=== PATIENT | male | born 1960 ===

== ENCOUNTER 2020-10-13 13:44 | Inpatient (IN) | payer OTHER ==
[~2020-10-13] VITALS: Ht 185.4 cm; Wt 111.5 kg
--- NOTE | 2020-10-13 14:11 | NUR ---
PT PLACED ON ALL ROOM MONITORING. ATTEMPT TO PLACE OXYMASK AT 8LITERS. PT CONTINUES TO BY HYPOXIC, 84%. NRB PLACED AT 15LITERS WITH SATS IMPROVING TO 89%. TACHY ON MONITOR, RANGING 110-134. OFFICERS AT BS.
[2020-10-13] MEDS ORDERED: AZITHROMYCIN 500 MG in SODIUM CHLORIDE 0.9% 250 ML IVPB ONE (14:30)
[2020-10-13] MEDS ORDERED: CEFTRIAXONE PMX 1GM/50ML 50 ML IVPB ONE (14:30)
[2020-10-13] MEDS ORDERED: SODIUM CHLORIDE FLUSH 10ML SYR IVF ONE (14:30)
--- NOTE | 2020-10-13 14:42 | NUR ---
IV PLACED BY MEDIC STUDENT, AND LABS DRAWN WITH START. REPORT TO Shun CHRISTIAN.
[2020-10-13] MEDS ORDERED: CEFTRIAXONE PMX 1GM/50ML 50 ML ONE (15:07)
--- NOTE | 2020-10-13 15:12 | NUR ---
BLOOD CULTURES DRAWN PRIOR ABX
[2020-10-13 15:29] LABS: MEAN CORPUSCULAR HEMOGLOBIN 29.7 pg (27.5-34.5); MEAN CORPUSCULAR HGB CONC 35.4 g/dL (33.2-36.2); MEAN PLATELET VOLUME 8.7 fL (7.4-10.4); PLATELET COUNT 365 x10^3/uL (130-400); RED BLOOD COUNT 5.63 x10^6/uL (4.38-5.82); RED CELL DISTRIBUTION WIDTH 13.5 % (9.4-14.8)
[2020-10-13 15:31] LABS: PLATELET (DIC) 349 x10^3/uL (130-400)
[2020-10-13 15:42] LABS: ALBUMIN 2.4 g/dL (3.4-5.0); CALCIUM 8.9 mg/dL (8.5-10.1); CHLORIDE 90 mmol/L (98-107)
[2020-10-13 15:47] LABS: MD YES
[2020-10-13 15:49] LABS: ANION GAP 14 mmol/L (5-15)
[2020-10-13 15:50] LABS: ALANINE AMINOTRANSFERASE 73 U/L (12-78); ALKALINE PHOSPHATASE 99 U/L (45-117); BILIRUBIN,TOTAL 0.7 mg/dL (0.2-1.0); CREATININE 0.98 mg/dL (0.7-1.3); TOTAL PROTEIN 7.4 g/dL (6.4-8.2)
[2020-10-13 16:12] LABS: BANDS%(MANUAL) 2 % (0-7); LYMPHS% (MANUAL) 3 % (22-44); MONOS% (MANUAL) 4 % (2-9); SEGS% (MANUAL) 91 % (42-75)
[2020-10-13 16:13] LABS: FIBRINOGEN 487 mg/dL (200-340); PROTIME 12.3 Seconds (9.6-11.5); PTT 27 Seconds (25-31)
[2020-10-13 16:13] LABS: <PLATELET ESTIMATE> ADEQUATE; <PLT MORPHOLOGY> NORMAL PLT MORPH; <RBC MORPHOLOGY> NORMAL; PMNS WITH VACUOLES 1+; TOXIC GRAN 1+
[2020-10-13 16:15] LABS: D-DIMER (DIC) > 35.20 ug/mlFEU (0.00-0.52)
[2020-10-13] MEDS ORDERED: DILTIAZEM 5 MG/ML, 5ML IV ONE (16:30)
[2020-10-13] MEDS ORDERED: SODIUM CHLORIDE FLUSH 10ML SYR IVF PRN (16:30)
[2020-10-13] MEDS ORDERED: DILTIAZEM 5 MG/ML, 5ML ONE ×2 (16:33→18:11)
--- NOTE | 2020-10-13 16:39 | NUR ---
ORDERED DILT FROM PHARM, NOT AVAILABLE IN [facility]MN[facility]. PT RESTING, NOT IN DISTRESS. HR 130-140
[2020-10-13] MEDS: DILTIAZEM 125 MG in SODIUM CHLORIDE 0.9% 100 ML IV SCH ×3 (17:25→22:57)
[2020-10-13] MEDS ORDERED: PHARMACY MAY ADJ FOR RENAL FX MC PRN (17:30)
[2020-10-13] MEDS ORDERED: DEXAMETHASONE 1 MG TABLET PO SCH (17:30)
[2020-10-13] MEDS ORDERED: GUAIFENESIN/COD200MG-20MG/10ML LIQUID PO PRN (17:30)
[2020-10-13] MEDS: SODIUM CHLORIDE 0.9% 1,000 ML IV SCH (17:30)
[2020-10-13] MEDS ORDERED: LABETALOL 5MG/ML, 20ML IVPush PRN (17:30)
[2020-10-13] MEDS ORDERED: DOCUSATE 100 MG CAPSULE PO PRN (17:30)
[2020-10-13] MEDS ORDERED: SODIUM CHLORIDE 0.9% 1,000ML IVBOLUS ONE (17:30)
[2020-10-13] MEDS ORDERED: ZOLPIDEM 5MG TABLET PO PRN (17:30)
[2020-10-13] MEDS ORDERED: ONDANSETRON 2MG/ML, 2ML IVPush PRN (17:30)
[2020-10-13] MEDS ORDERED: morphine SULFATE 10 MG/ML, 1ML IVPush PRN (17:30)
[2020-10-13] MEDS ORDERED: DILTIAZEM 5 MG/ML, 5ML IVPush PRN (17:30)
[2020-10-13] MEDS ORDERED: CYCLOBENZAPRINE 10 MG TABLET PO PRN (17:30)
[2020-10-13] MEDS ORDERED: ENOXAPARIN 40 MG/0.4 ML SQ SCH (17:30)
--- NOTE | 2020-10-13 17:32 | NUR ---
DILT INFUSING PER ORDERS. PT HAS NO CO, NOT IN RESP DISTRESS.
[2020-10-13 18:09] LABS: TROPONIN I < 0.015 ng/mL (0.000-0.045)
[2020-10-13] MEDS ORDERED: ENOXAPARIN 40 MG/0.4 ML ONE (18:10)
[2020-10-13] MEDS ORDERED: DEXAMETHASONE 4 MG TABLET ONE (18:11)
[2020-10-13] MEDS ORDERED: METOPROLOL TARTRATE 25 MG TAB ONE (18:11)
[2020-10-13] MEDS: METOPROLOL TARTRATE 25 MG TAB PO SCH (18:15)
--- NOTE | 2020-10-13 18:25 | NUR ---
MEDICATED PER ORDERS. MEAL TRAY ORDERED. PT MAINTAINING AIRWAY, RR 35
--- NOTE | 2020-10-13 18:52 | NUR ---
BEDSIDE REPORT RECEIVED FROM JUNG CHRISTIAN
--- NOTE | 2020-10-13 19:14 | NUR ---
PT SITTING UPRIGHT ON GURNEY, NAD, VITALS REMAIN STABLE. [facility] STAFF AT BEDSIDE. PT DENIES ANY NEEDS AT THIS TIME. CALL LIGHT WITHIN REACH, ISOLATION PRECAUTIONS IN PLACE.
--- NOTE | 2020-10-13 20:08 | NUR ---
PT SITTING UPRIGHT ON GURNEY, NAD, VITALS REMAIN STABLE. [facility] STAFF AT BEDSIDE. PT DENIES ANY NEEDS AT THIS TIME. CALL LIGHT WITHIN REACH, ISOLATION PRECAUTIONS IN PLACE.
[2020-10-13] MEDS ORDERED: BENZONATATE 100 MG CAPSULE ONE (20:48)
[2020-10-13] MEDS ORDERED: ASCORBIC ACID 500 MG TABLET ONE (20:48)
[2020-10-13] MEDS ORDERED: FAMOTIDINE 20 MG TABLET ONE (20:48)
[2020-10-13] MEDS: FAMOTIDINE 20 MG TABLET PO SCH (20:55)
[2020-10-13] MEDS: ASCORBIC ACID 500 MG TABLET PO SCH (20:56)
[2020-10-13] MEDS: BENZONATATE 100 MG CAPSULE PO SCH (20:56)
--- NOTE | 2020-10-13 21:00 | NUR ---
Pt to be admitted to CARD/COVID, room 493. Report called to CINDY.
--- NOTE | 2020-10-13 21:34 | NUR ---
[facility] AT BEDSIDE
--- NOTE | 2020-10-13 22:03 | NUR ---
PT CONTINUES TO TOLERATE OPTIFLOW WELL. PT SITTING UPRIGHT ON GURNEY, NAD, VITALS REMAIN STABLE. [facility]F-WAY STAFF AT BEDSIDE. PT DENIES ANY NEEDS AT THIS TIME. CALL LIGHT WITHIN REACH, ISOLATION PRECAUTIONS IN PLACE.
[2020-10-13] MEDS: LOVASTATIN 20 MG TABLET PO SCH (22:22)
--- NOTE | 2020-10-13 22:39 | NUR ---
Pt to be admitted to CCU, room 545. Report called to HUSSEIN.
[2020-10-13 23:16] VITALS: BP 175/76
[2020-10-13] MEDS ORDERED: REMDESIVIR 200 MG in SODIUM CHLORIDE 0.9% 250 ML IVPB ONE (23:30)
[2020-10-13 23:43] LABS: INTERNATIONAL NORMALIZED RATIO 1.15 (0.93-1.1); PROTHROMBIN TIME 12.2 Seconds (9.6-11.5)
[2020-10-13 23:48] LABS: TROPONIN I < 0.015 ng/mL (0.000-0.045)
[2020-10-14 03:14] LABS: MEAN CORPUSCULAR HEMOGLOBIN 29.5 pg (27.5-34.5); MEAN CORPUSCULAR HGB CONC 34.7 g/dL (33.2-36.2); MEAN PLATELET VOLUME 8.1 fL (7.4-10.4); PLATELET COUNT 315 x10^3/uL (130-400); RED BLOOD COUNT 5.31 x10^6/uL (4.38-5.82); RED CELL DISTRIBUTION WIDTH 13.3 % (9.4-14.8)
[2020-10-14 03:25] LABS: BILIRUBIN, DIRECT 0.2 mg/dL (0.1-0.2)
[2020-10-14 03:26] LABS: ANION GAP 7 mmol/L (5-15); BILIRUBIN,INDIRECT 0.5 mg/dL (0.0-2.0); BILIRUBIN,TOTAL 0.7 mg/dL (0.2-1.0); CALCIUM 8.3 mg/dL (8.5-10.1); CHLORIDE 96 mmol/L (98-107); CREATININE 0.96 mg/dL (0.7-1.3)
[2020-10-14 03:41] LABS: TROPONIN I < 0.015 ng/mL (0.000-0.045)
[2020-10-14 04:13] LABS: MD YES
[2020-10-14 04:16] LABS: <RBC MORPHOLOGY> NORMAL; BAND#(MANUAL) 0.59 x10^3/uL; BANDS%(MANUAL) 3 % (0-7); LYMPH#(MANUAL) 0.39 x10^3/uL (1-3.4); LYMPHS% (MANUAL) 2 % (22-44); MONOS#(MANUAL) 0.39 x10^3/uL (0.3-2.7); MONOS% (MANUAL) 2 % (2-9); SEG#(MANUAL) 18.32 x10^3/uL (1.8-6.8); SEGS% (MANUAL) 93 % (42-75); TOXIC GRAN 1+
[2020-10-14 04:17] LABS: <PLATELET ESTIMATE> ADEQUATE; <PLT MORPHOLOGY> NORMAL PLT MORPH; PMNS WITH VACUOLES 1+
[2020-10-14] MEDS: METOPROLOL TARTRATE 25 MG TAB PO SCH (05:11)
[2020-10-14] MEDS: DILTIAZEM 125 MG in SODIUM CHLORIDE 0.9% 100 ML IV SCH (05:26)
[2020-10-14] MEDS ORDERED: ASPIRIN 81 MG TABLET EC PO SCH (06:00)
[2020-10-14] MEDS ORDERED: DEXAMETHASONE 4 MG TABLET PO SCH (07:30)
[2020-10-14] MEDS: TAMSULOSIN 0.4 MG CAP.ER.24H PO SCH (07:47)
[2020-10-14] MEDS: BENZONATATE 100 MG CAPSULE PO SCH (07:48)
[2020-10-14] MEDS: ASCORBIC ACID 500 MG TABLET PO SCH ×2 (07:48→20:01)
[2020-10-14] MEDS: FAMOTIDINE 20 MG TABLET PO SCH (07:48)
[2020-10-14] MEDS: SODIUM CHLORIDE 0.9% 1,000 ML IV SCH ×2 (07:50→16:32)
[2020-10-14] MEDS ORDERED: ZINC SULFATE 220 MG CAPSULE PO SCH (09:00)
[2020-10-14] MEDS ORDERED: LISINOPRIL 20 MG TABLET PO SCH (09:00)
[2020-10-14 09:12] LABS: ALANINE AMINOTRANSFERASE 58 U/L (12-78); ALBUMIN 2.1 g/dL (3.4-5.0); ANION GAP 10 mmol/L (5-15); CHLORIDE 99 mmol/L (98-107); CREATININE 0.86 mg/dL (0.7-1.3)
[2020-10-14 09:14] LABS: ALKALINE PHOSPHATASE 103 U/L (45-117); BILIRUBIN,TOTAL 0.7 mg/dL (0.2-1.0); TOTAL PROTEIN 6.9 g/dL (6.4-8.2)
[2020-10-14] MEDS ORDERED: ENOXAPARIN 120MG/0.8ML SQ SCH (11:30)
[2020-10-14] MEDS: ENOXAPARIN 120MG/0.8ML SQ SCH ×2 (11:36→23:11)
[2020-10-14] MEDS ORDERED: PROPOFOL 100 ML IV ONE ×2 (12:38→12:39)
[2020-10-14] MEDS ORDERED: FENTANYL PF 100 MCG/2ML IVPush PRN (13:30)
[2020-10-14] MEDS ORDERED: PHARMACY MAY ADJ FOR RENAL FX MC SCH (13:30)
[2020-10-14] MEDS ORDERED: LIDOCAINE-MPF 1%, 2ML ENDO PRN (13:30)
[2020-10-14] MEDS: PROPOFOL 100 ML IV PRN ×3 (13:50→21:47)
[2020-10-14] MEDS: MIDAZOLAM HCL 50 MG in SODIUM CHLORIDE 0.9% 40 ML IV PRN ×2 (14:10→21:47)
[2020-10-14] MEDS: FENTANYL PF 1,000 MCG in SODIUM CHLORIDE 0.9% 80 ML IV PRN (14:19)
[2020-10-14] MEDS ORDERED: PHENYLEPHRINE 50 MG in SODIUM CHLORIDE 0.9% 245 ML IV PRN (15:00)
[2020-10-14] MEDS ORDERED: POTASSIUM CHLORIDE 40 MEQ in SODIUM CHLORIDE 0.9% 100 ML IV ONE (15:00)
--- NOTE | 2020-10-14 15:15 | NUR ---
TF per RD recs: Vital HP w/ end goal rate @55mL/hr (on propofol); @65mL/hr (off propofol) Addendum: 10/14/20 at [address] Amended: Links added.
[2020-10-14] MEDS: NOREPINEPHRINE 8 MG in SODIUM CHLORIDE 0.9% 242 ML IV PRN ×2 (15:19→21:47)
[2020-10-14] MEDS: CEFTRIAXONE PMX 1GM/50ML 50 ML IV SCH (15:38)
[2020-10-14] MEDS ORDERED: MIDAZOLAM 1 MG/ML, 5ML ONE (16:27)
[2020-10-14] MEDS ORDERED: ETOMIDATE 20 MG/10 ML ONE (16:27)
[2020-10-14] MEDS ORDERED: PROPOFOL 10 MG/ML, 100ML IV ONE (16:27)
[2020-10-14] MEDS ORDERED: SUCCINYLCHOLINE 20 MG/ML, 10ML ONE (16:27)
[2020-10-14] MEDS ORDERED: ROCURONIUM 10MG/ML,5ML ONE (16:27)
[2020-10-14] MEDS: DOXYCYCLINE 100 MG in DEXTROSE 5% 250 ML IV SCH (16:32)
[2020-10-14] MEDS: LOVASTATIN 20 MG TABLET PO SCH (20:01)
[2020-10-14] MEDS ORDERED: SODIUM CHLORIDE 0.9%, 500ML IVBOLUS ONE (21:30)
[2020-10-14] MEDS: REMDESIVIR 100 MG in SODIUM CHLORIDE 0.9% 250 ML IVPB SCH (23:12)
[2020-10-15] MEDS: PROPOFOL 100 ML IV PRN ×7 (00:10→22:28)
[2020-10-15] MEDS: MIDAZOLAM HCL 50 MG in SODIUM CHLORIDE 0.9% 40 ML IV PRN ×3 (03:46→20:26)
[2020-10-15] MEDS: FENTANYL PF 1,000 MCG in SODIUM CHLORIDE 0.9% 80 ML IV PRN (03:46)
[2020-10-15] MEDS: SODIUM CHLORIDE 0.9% 1,000 ML IV SCH ×3 (03:46→19:38)
[2020-10-15] MEDS: DOXYCYCLINE 100 MG in DEXTROSE 5% 250 ML IV SCH ×2 (03:46→16:17)
[2020-10-15 04:31] LABS: ALANINE AMINOTRANSFERASE 38 U/L (12-78); ALBUMIN 1.9 g/dL (3.4-5.0); ANION GAP 7 mmol/L (5-15); CALCIUM 7.7 mg/dL (8.5-10.1); CHLORIDE 104 mmol/L (98-107); CREATININE 1.07 mg/dL (0.7-1.3)
[2020-10-15 04:36] LABS: MEAN CORPUSCULAR HGB CONC 34.6 g/dL (33.2-36.2); MEAN PLATELET VOLUME 8.3 fL (7.4-10.4); PLATELET COUNT 304 x10^3/uL (130-400); RED BLOOD COUNT 4.84 x10^6/uL (4.38-5.82); RED CELL DISTRIBUTION WIDTH 13.4 % (9.4-14.8)
[2020-10-15 04:38] LABS: ALKALINE PHOSPHATASE 91 U/L (45-117); BILIRUBIN,TOTAL 0.4 mg/dL (0.2-1.0)
[2020-10-15 05:11] LABS: BILIRUBIN, DIRECT 0.2 mg/dL (0.1-0.2); BILIRUBIN,INDIRECT 0.2 mg/dL (0.0-2.0); BILIRUBIN,TOTAL 0.4 mg/dL (0.2-1.0)
[2020-10-15 05:49] LABS: MD YES
[2020-10-15 05:50] LABS: BAND#(MANUAL) 1.02 x10^3/uL; BANDS%(MANUAL) 4 % (0-7); LYMPH#(MANUAL) 1.02 x10^3/uL (1-3.4); LYMPHS% (MANUAL) 4 % (22-44); METAMYELOCYTES# (MANUAL) 0.26 x10^3/uL (0-0); METAMYELOCYTES% (MANUAL) 1 % (0-1); MONOS#(MANUAL) 0.26 x10^3/uL (0.3-2.7); MONOS% (MANUAL) 1 % (2-9); SEG#(MANUAL) 23.04 x10^3/uL (1.8-6.8); SEGS% (MANUAL) 90 % (42-75)
[2020-10-15 05:51] LABS: <PLATELET ESTIMATE> ADEQUATE; <PLT MORPHOLOGY> NORMAL PLT MORPH; POLYCHROMASIA 1+
[2020-10-15] MEDS: PANTOPRAZOLE 40 MG IV IV SCH (08:32)
[2020-10-15] MEDS: ASPIRIN 81 MG TABLET CHEW PO SCH (08:33)
[2020-10-15] MEDS: TAMSULOSIN 0.4 MG CAP.ER.24H PO SCH (08:33)
[2020-10-15] MEDS: DEXAMETHASONE 4 MG/ML, 1ML IVPush SCH (08:33)
[2020-10-15] MEDS: ASCORBIC ACID 500 MG TABLET PO SCH ×2 (08:34→19:38)
[2020-10-15] MEDS ORDERED: THIAMINE 100MG TABLET PO SCH (09:00)
[2020-10-15] MEDS ORDERED: CHOLECALCIFEROL 5,000u TAB PO SCH (09:00)
[2020-10-15] MEDS ORDERED: ZINC SULFATE 220 MG CAPSULE PO SCH (09:00)
[2020-10-15] MEDS: ENOXAPARIN 120MG/0.8ML SQ SCH ×2 (11:10→23:19)
[2020-10-15] MEDS ORDERED: VECURONIUM 10 MG IVPush ONE (14:30)
[2020-10-15] MEDS: CEFTRIAXONE PMX 1GM/50ML 50 ML IV SCH (14:36)
[2020-10-15] MEDS: VECURONIUM 50 MG in SODIUM CHLORIDE 0.9% 50 ML IV PRN ×2 (16:17→20:26)
[2020-10-15] MEDS: NOREPINEPHRINE 8 MG in SODIUM CHLORIDE 0.9% 242 ML IV PRN (16:39)
[2020-10-15] MEDS: LOVASTATIN 20 MG TABLET PO SCH (19:38)
[2020-10-15] MEDS: REMDESIVIR 100 MG in SODIUM CHLORIDE 0.9% 250 ML IVPB SCH (23:21)
[2020-10-16] MEDS: FENTANYL PF 1,000 MCG in SODIUM CHLORIDE 0.9% 80 ML IV PRN (01:47)
[2020-10-16] MEDS: MIDAZOLAM HCL 50 MG in SODIUM CHLORIDE 0.9% 40 ML IV PRN (01:47)
[2020-10-16] MEDS: PROPOFOL 100 ML IV PRN ×4 (02:35→21:13)
[2020-10-16] MEDS: SODIUM CHLORIDE 0.9% 1,000 ML IV SCH ×3 (04:16→23:05)
[2020-10-16] MEDS: DOXYCYCLINE 100 MG in DEXTROSE 5% 250 ML IV SCH ×2 (04:16→16:00)
[2020-10-16] MEDS: MIDAZOLAM HCL 100 MG in SODIUM CHLORIDE 0.9% 80 ML IV PRN ×2 (04:43→22:04)
[2020-10-16 05:17] LABS: ALBUMIN 1.7 g/dL (3.4-5.0); ANION GAP 4 mmol/L (5-15); CALCIUM 7.4 mg/dL (8.5-10.1); CHLORIDE 108 mmol/L (98-107)
[2020-10-16 05:19] LABS: MEAN CORPUSCULAR HEMOGLOBIN 29.3 pg (27.5-34.5); MEAN CORPUSCULAR HGB CONC 33.1 g/dL (33.2-36.2); MEAN PLATELET VOLUME 8.1 fL (7.4-10.4); PLATELET COUNT 310 x10^3/uL (130-400)
[2020-10-16 05:28] LABS: ALANINE AMINOTRANSFERASE 33 U/L (12-78); ALKALINE PHOSPHATASE 73 U/L (45-117); BILIRUBIN, DIRECT 0.1 mg/dL (0.1-0.2); BILIRUBIN,INDIRECT 0.1 mg/dL (0.0-2.0); BILIRUBIN,TOTAL 0.2 mg/dL (0.2-1.0); CREATININE 0.74 mg/dL (0.7-1.3); TOTAL PROTEIN 5.7 g/dL (6.4-8.2)
[2020-10-16] MEDS: NOREPINEPHRINE 8 MG in SODIUM CHLORIDE 0.9% 242 ML IV PRN ×2 (05:32→22:04)
[2020-10-16 06:36] LABS: MD YES
[2020-10-16 06:37] LABS: BAND#(MANUAL) 0.36 x10^3/uL; BANDS%(MANUAL) 2 % (0-7); LYMPH#(MANUAL) 0.36 x10^3/uL (1-3.4); LYMPHS% (MANUAL) 2 % (22-44); METAMYELOCYTES# (MANUAL) 0.36 x10^3/uL (0-0); METAMYELOCYTES% (MANUAL) 2 % (0-1); MONOS#(MANUAL) 0.72 x10^3/uL (0.3-2.7); MONOS% (MANUAL) 4 % (2-9); SEG#(MANUAL) 16.11 x10^3/uL (1.8-6.8); SEGS% (MANUAL) 90 % (42-75)
[2020-10-16 06:38] LABS: <PLATELET ESTIMATE> ADEQUATE; <PLT MORPHOLOGY> NORMAL PLT MORPH; POLYCHROMASIA 1+
[2020-10-16] MEDS: TAMSULOSIN 0.4 MG CAP.ER.24H PO SCH (07:50)
[2020-10-16] MEDS: DEXAMETHASONE 4 MG/ML, 1ML IVPush SCH (07:50)
[2020-10-16] MEDS: ZINC SULFATE 220 MG CAPSULE PO SCH (07:50)
[2020-10-16] MEDS: ASCORBIC ACID 500 MG TABLET PO SCH ×2 (07:50→21:05)
[2020-10-16] MEDS: ASPIRIN 81 MG TABLET CHEW PO SCH (07:50)
[2020-10-16] MEDS: PANTOPRAZOLE 40 MG IV IV SCH (07:50)
[2020-10-16] MEDS: THIAMINE 100MG TABLET PO SCH (07:50)
[2020-10-16] MEDS: VECURONIUM 50 MG in SODIUM CHLORIDE 0.9% 50 ML IV PRN ×2 (07:51→22:04)
[2020-10-16] MEDS: CHOLECALCIFEROL 5,000u TAB PO SCH (07:51)
[2020-10-16] MEDS: ENOXAPARIN 120MG/0.8ML SQ SCH ×2 (12:33→23:05)
[2020-10-16] MEDS: CEFTRIAXONE PMX 1GM/50ML 50 ML IV SCH (14:56)
[2020-10-16] MEDS ORDERED: VECURONIUM 10 MG ONE (15:46)
[2020-10-16] MEDS: LOVASTATIN 20 MG TABLET PO SCH (21:05)
[2020-10-16] MEDS: REMDESIVIR 100 MG in SODIUM CHLORIDE 0.9% 250 ML IVPB SCH (23:00)
[2020-10-17] MEDS: PROPOFOL 100 ML IV PRN ×7 (00:36→23:14)
[2020-10-17] MEDS ORDERED: DOXYCYCLINE 100 MG in DEXTROSE 5% 250 ML IV SCH (04:00)
[2020-10-17 04:05] LABS: MEAN CORPUSCULAR HEMOGLOBIN 29.8 pg (27.5-34.5); MEAN CORPUSCULAR HGB CONC 33.9 g/dL (33.2-36.2); MEAN PLATELET VOLUME 7.9 fL (7.4-10.4); PLATELET COUNT 309 x10^3/uL (130-400); RED BLOOD COUNT 4.21 x10^6/uL (4.38-5.82)
[2020-10-17 04:13] LABS: ALANINE AMINOTRANSFERASE 30 U/L (12-78); ALBUMIN 1.6 g/dL (3.4-5.0); CALCIUM 7.3 mg/dL (8.5-10.1)
[2020-10-17 04:24] LABS: ALKALINE PHOSPHATASE 57 U/L (45-117); BILIRUBIN,TOTAL 0.3 mg/dL (0.2-1.0); TOTAL PROTEIN 5.1 g/dL (6.4-8.2); TRIGLYCERIDES 161 mg/dL (50-200)
[2020-10-17 04:31] LABS: D-DIMER 3.73 ug/mlFEU (0.00-0.52)
[2020-10-17 04:36] LABS: ANION GAP 2 mmol/L (5-15); CHLORIDE 109 mmol/L (98-107)
[2020-10-17 06:15] LABS: MD YES
[2020-10-17 06:17] LABS: <PLATELET ESTIMATE> ADEQUATE; <PLT MORPHOLOGY> NORMAL PLT MORPH; BAND#(MANUAL) 0.29 x10^3/uL; BANDS%(MANUAL) 2 % (0-7); EOS#(MANUAL) 0.15 x10^3/uL (0.0-0.4); EOS% (MANUAL) 1 % (1-7); LYMPH#(MANUAL) 0.29 x10^3/uL (1-3.4); LYMPHS% (MANUAL) 2 % (22-44); METAMYELOCYTES# (MANUAL) 0.59 x10^3/uL (0-0); METAMYELOCYTES% (MANUAL) 4 % (0-1); MONOS#(MANUAL) 0.59 x10^3/uL (0.3-2.7); MONOS% (MANUAL) 4 % (2-9); MYELOCYTES# (MANUAL) 0.29 x10^3/uL (0-0); MYELOCYTES% (MANUAL) 2 % (0-0); POLYCHROMASIA 1+; SEGS% (MANUAL) 85 % (42-75); TOXIC GRAN 1+
[2020-10-17] MEDS: ASCORBIC ACID 500 MG TABLET PO SCH ×2 (09:54→20:25)
[2020-10-17] MEDS: PANTOPRAZOLE 40 MG IV IV SCH (09:54)
[2020-10-17] MEDS: DEXAMETHASONE 4 MG/ML, 1ML IVPush SCH (09:54)
[2020-10-17] MEDS: ZINC SULFATE 220 MG CAPSULE PO SCH (09:54)
[2020-10-17] MEDS: CHOLECALCIFEROL 5,000u TAB PO SCH (09:54)
[2020-10-17] MEDS: ASPIRIN 81 MG TABLET CHEW PO SCH (09:54)
[2020-10-17] MEDS: TAMSULOSIN 0.4 MG CAP.ER.24H PO SCH (09:54)
[2020-10-17] MEDS: THIAMINE 100MG TABLET PO SCH (09:54)
[2020-10-17] MEDS: ENOXAPARIN 120MG/0.8ML SQ SCH ×2 (10:24→23:30)
[2020-10-17] MEDS: FENTANYL PF 1,000 MCG in SODIUM CHLORIDE 0.9% 80 ML IV PRN (11:31)
[2020-10-17] MEDS: MIDAZOLAM HCL 100 MG in SODIUM CHLORIDE 0.9% 80 ML IV PRN (12:40)
[2020-10-17] MEDS: CEFTRIAXONE PMX 1GM/50ML 50 ML IV SCH (14:00)
[2020-10-17] MEDS ORDERED: VECURONIUM 10 MG ONE (14:28)
[2020-10-17] MEDS: VECURONIUM 50 MG in SODIUM CHLORIDE 0.9% 50 ML IV PRN (14:47)
[2020-10-17] MEDS: AZITHROMYCIN 500 MG in SODIUM CHLORIDE 0.9% 250 ML IV SCH (14:47)
[2020-10-17] MEDS: LOVASTATIN 20 MG TABLET PO SCH (20:25)
[2020-10-17] MEDS: REMDESIVIR 100 MG in SODIUM CHLORIDE 0.9% 250 ML IVPB SCH (23:08)
[2020-10-18] MEDS: VECURONIUM 50 MG in SODIUM CHLORIDE 0.9% 50 ML IV PRN (00:05)
[2020-10-18] MEDS: PROPOFOL 100 ML IV PRN ×4 (03:31→14:47)
[2020-10-18 04:09] LABS: MEAN CORPUSCULAR HEMOGLOBIN 29.9 pg (27.5-34.5); MEAN CORPUSCULAR HGB CONC 33.8 g/dL (33.2-36.2); MEAN PLATELET VOLUME 7.5 fL (7.4-10.4); PLATELET COUNT 316 x10^3/uL (130-400); RED BLOOD COUNT 4.13 x10^6/uL (4.38-5.82); RED CELL DISTRIBUTION WIDTH 14.1 % (9.4-14.8)
[2020-10-18 04:18] LABS: CALCIUM 7.6 mg/dL (8.5-10.1); CHLORIDE 107 mmol/L (98-107)
[2020-10-18 04:26] LABS: CREATININE 0.46 mg/dL (0.7-1.3)
[2020-10-18 04:31] LABS: ANION GAP -2 mmol/L (5-15)
[2020-10-18 04:34] LABS: MD YES
[2020-10-18 04:36] LABS: BAND#(MANUAL) 0.24 x10^3/uL; BANDS%(MANUAL) 2 % (0-7); LYMPH#(MANUAL) 1.34 x10^3/uL (1-3.4); LYMPHS% (MANUAL) 11 % (22-44); METAMYELOCYTES# (MANUAL) 0.24 x10^3/uL (0-0); METAMYELOCYTES% (MANUAL) 2 % (0-1); MONOS#(MANUAL) 0.49 x10^3/uL (0.3-2.7); MONOS% (MANUAL) 4 % (2-9); MYELOCYTES# (MANUAL) 0.24 x10^3/uL (0-0); MYELOCYTES% (MANUAL) 2 % (0-0); SEG#(MANUAL) 9.64 x10^3/uL (1.8-6.8); SEGS% (MANUAL) 79 % (42-75)
[2020-10-18 04:38] LABS: <PLATELET ESTIMATE> ADEQUATE; <PLT MORPHOLOGY> NORMAL PLT MORPH; POLYCHROMASIA 1+
[2020-10-18] MEDS: MIDAZOLAM HCL 100 MG in SODIUM CHLORIDE 0.9% 80 ML IV PRN (06:31)
[2020-10-18] MEDS: FENTANYL PF 1,000 MCG in SODIUM CHLORIDE 0.9% 80 ML IV PRN (06:32)
[2020-10-18] MEDS ORDERED: FUROSEMIDE 40 MG/4 ML IV ONE (08:30)
[2020-10-18] MEDS: TAMSULOSIN 0.4 MG CAP.ER.24H PO SCH (08:32)
[2020-10-18] MEDS: ZINC SULFATE 220 MG CAPSULE PO SCH (08:32)
[2020-10-18] MEDS: DEXAMETHASONE 4 MG/ML, 1ML IVPush SCH (08:33)
[2020-10-18] MEDS: ASPIRIN 81 MG TABLET CHEW PO SCH (08:33)
[2020-10-18] MEDS: ASCORBIC ACID 500 MG TABLET PO SCH ×2 (08:33→21:03)
[2020-10-18] MEDS: THIAMINE 100MG TABLET PO SCH (08:33)
[2020-10-18] MEDS: PANTOPRAZOLE 40 MG IV IV SCH (08:33)
[2020-10-18] MEDS: CHOLECALCIFEROL 5,000u TAB PO SCH (08:33)
[2020-10-18] MEDS: ENOXAPARIN 120MG/0.8ML SQ SCH ×2 (12:13→23:30)
[2020-10-18] MEDS: AZITHROMYCIN 500 MG in SODIUM CHLORIDE 0.9% 250 ML IV SCH (14:47)
[2020-10-18] MEDS: CEFTRIAXONE PMX 1GM/50ML 50 ML IV SCH (16:01)
[2020-10-18] MEDS: LOVASTATIN 20 MG TABLET PO SCH (21:03)
[2020-10-19 03:19] LABS: ANION GAP 2 mmol/L (5-15); CALCIUM 7.8 mg/dL (8.5-10.1); CHLORIDE 104 mmol/L (98-107); CREATININE 0.58 mg/dL (0.7-1.3)
[2020-10-19 03:24] LABS: MEAN CORPUSCULAR HEMOGLOBIN 29.4 pg (27.5-34.5); MEAN CORPUSCULAR HGB CONC 33.8 g/dL (33.2-36.2); MEAN PLATELET VOLUME 7.7 fL (7.4-10.4); PLATELET COUNT 368 x10^3/uL (130-400); RED BLOOD COUNT 4.58 x10^6/uL (4.38-5.82); RED CELL DISTRIBUTION WIDTH 14.1 % (9.4-14.8)
[2020-10-19 03:26] LABS: BILIRUBIN,TOTAL 0.5 mg/dL (0.2-1.0)
[2020-10-19 04:15] LABS: MD YES
[2020-10-19] MEDS: FENTANYL PF 1,000 MCG in SODIUM CHLORIDE 0.9% 80 ML IV PRN ×2 (04:17→17:55)
[2020-10-19] MEDS: PROPOFOL 100 ML IV PRN ×5 (04:18→21:54)
[2020-10-19 04:20] LABS: BAND#(MANUAL) 0.51 x10^3/uL; BANDS%(MANUAL) 3 % (0-7); LYMPH#(MANUAL) 0.51 x10^3/uL (1-3.4); LYMPHS% (MANUAL) 3 % (22-44); METAMYELOCYTES# (MANUAL) 0.34 x10^3/uL (0-0); METAMYELOCYTES% (MANUAL) 2 % (0-1); MONOS#(MANUAL) 0.51 x10^3/uL (0.3-2.7); MONOS% (MANUAL) 3 % (2-9); MYELOCYTES# (MANUAL) 0.34 x10^3/uL (0-0); MYELOCYTES% (MANUAL) 2 % (0-0); REACTIVE LYMPHS # (MANUAL) 0.51 x10^3/uL (0-0); REACTIVE LYMPHS % (MANUAL) 3 % (0-0); SEGS% (MANUAL) 84 % (42-75)
[2020-10-19 04:21] LABS: <PLATELET ESTIMATE> ADEQUATE; <PLT MORPHOLOGY> NORMAL PLT MORPH; PMNS WITH VACUOLES 1+; POLYCHROMASIA 1+; TOXIC GRAN 1+
[2020-10-19] MEDS: ACETAMINOPHEN 325 MG TABLET PO PRN (08:27)
[2020-10-19] MEDS ORDERED: AcetaZOLAMIDE INJ 500 MG IVPush SCH (09:00)
[2020-10-19] MEDS: ASPIRIN 81 MG TABLET CHEW PO SCH (09:01)
[2020-10-19] MEDS: CHOLECALCIFEROL 5,000u TAB PO SCH (09:01)
[2020-10-19] MEDS: PANTOPRAZOLE 40 MG IV IV SCH (09:01)
[2020-10-19] MEDS: ZINC SULFATE 220 MG CAPSULE PO SCH (09:02)
[2020-10-19] MEDS: TAMSULOSIN 0.4 MG CAP.ER.24H PO SCH (09:02)
[2020-10-19] MEDS: DEXAMETHASONE 4 MG/ML, 1ML IVPush SCH (09:02)
[2020-10-19] MEDS: THIAMINE 100MG TABLET PO SCH (09:02)
[2020-10-19] MEDS: ASCORBIC ACID 500 MG TABLET PO SCH ×2 (09:02→20:30)
[2020-10-19] MEDS ORDERED: IBUPROFEN 200 MG TABLET ONE (09:39)
[2020-10-19] MEDS: QUETIAPINE 25MG TABLET PO SCH ×2 (09:44→20:30)
[2020-10-19] MEDS: MIDAZOLAM HCL 100 MG in SODIUM CHLORIDE 0.9% 80 ML IV PRN (09:47)
[2020-10-19] MEDS ORDERED: IBUPROFEN 800 MG TABLET PO PRN (10:00)
[2020-10-19] MEDS ORDERED: NOREPINEPHRINE 1 MG/ML, 4ML ONE (10:35)
[2020-10-19] MEDS: NOREPINEPHRINE 8 MG in SODIUM CHLORIDE 0.9% 242 ML IV PRN (10:35)
[2020-10-19] MEDS: ENOXAPARIN 120MG/0.8ML SQ SCH ×2 (11:30→22:57)
[2020-10-19] MEDS: CEFTRIAXONE PMX 1GM/50ML 50 ML IV SCH (14:40)
[2020-10-19] MEDS: LOVASTATIN 20 MG TABLET PO SCH (20:30)
[2020-10-19] MEDS ORDERED: DOCUSATE 50 MG/5 ML, 10ML UDC PO PRN (21:30)
[2020-10-19] MEDS: DOCUSATE 50 MG/5 ML, 10ML UDC PO PRN (21:31)
[2020-10-20] MEDS: PROPOFOL 100 ML IV PRN ×4 (02:57→20:24)
[2020-10-20 03:09] LABS: MEAN CORPUSCULAR HEMOGLOBIN 29.2 pg (27.5-34.5); MEAN CORPUSCULAR HGB CONC 33.3 g/dL (33.2-36.2); MEAN PLATELET VOLUME 7.6 fL (7.4-10.4); PLATELET COUNT 368 x10^3/uL (130-400); RED BLOOD COUNT 4.41 x10^6/uL (4.38-5.82); RED CELL DISTRIBUTION WIDTH 14.2 % (9.4-14.8)
[2020-10-20 03:23] LABS: ANION GAP 5 mmol/L (5-15); CALCIUM 8.4 mg/dL (8.5-10.1); CHLORIDE 110 mmol/L (98-107)
[2020-10-20 03:32] LABS: BILIRUBIN,TOTAL 0.7 mg/dL (0.2-1.0); CREATININE 0.61 mg/dL (0.7-1.3); TRIGLYCERIDES 85 mg/dL (50-200)
[2020-10-20 03:48] LABS: MD YES
[2020-10-20 03:50] LABS: C-REACTIVE PROTEIN, QUANT > 19.00 mg/dL (0.02-0.49)
[2020-10-20 03:51] LABS: BAND#(MANUAL) 0.21 x10^3/uL; BANDS%(MANUAL) 1 % (0-7); EOS#(MANUAL) 0.21 x10^3/uL (0.0-0.4); EOS% (MANUAL) 1 % (1-7); LYMPH#(MANUAL) 0.83 x10^3/uL (1-3.4); LYMPHS% (MANUAL) 4 % (22-44); METAMYELOCYTES# (MANUAL) 0.21 x10^3/uL (0-0); METAMYELOCYTES% (MANUAL) 1 % (0-1); MONOS#(MANUAL) 0.62 x10^3/uL (0.3-2.7); MONOS% (MANUAL) 3 % (2-9); SEG#(MANUAL) 18.63 x10^3/uL (1.8-6.8); SEGS% (MANUAL) 90 % (42-75)
[2020-10-20 03:52] LABS: <PLATELET ESTIMATE> ADEQUATE; <PLT MORPHOLOGY> NORMAL PLT MORPH; POLYCHROMASIA 1+
[2020-10-20] MEDS: FUROSEMIDE 40 MG/4 ML IV SCH ×2 (07:46→16:34)
[2020-10-20 08:21] LABS: D-DIMER 7.09 ug/mlFEU (0.00-0.52)
[2020-10-20 08:46] LABS: MICROSCOPIC INDICATED
[2020-10-20] MEDS: DEXAMETHASONE 4 MG/ML, 1ML IVPush SCH (09:07)
[2020-10-20] MEDS: PANTOPRAZOLE 40 MG IV IV SCH (09:07)
[2020-10-20] MEDS: THIAMINE 100MG TABLET PO SCH (09:07)
[2020-10-20] MEDS: ZINC SULFATE 220 MG CAPSULE PO SCH (09:08)
[2020-10-20] MEDS: QUETIAPINE 25MG TABLET PO SCH ×2 (09:08→20:24)
[2020-10-20] MEDS: CHOLECALCIFEROL 5,000u TAB PO SCH (09:08)
[2020-10-20] MEDS: ASPIRIN 81 MG TABLET CHEW PO SCH (09:08)
[2020-10-20] MEDS: ASCORBIC ACID 500 MG TABLET PO SCH ×2 (09:08→20:24)
[2020-10-20] MEDS: TAMSULOSIN 0.4 MG CAP.ER.24H PO SCH (09:11)
[2020-10-20] MEDS: ENOXAPARIN 120MG/0.8ML SQ SCH (11:13)
[2020-10-20] MEDS: DOCUSATE 50 MG/5 ML, 10ML UDC PO PRN (11:13)
[2020-10-20] MEDS: ACETAMINOPHEN 325 MG TABLET PO PRN (11:13)
--- NOTE | 2020-10-20 13:51 | NUR ---
TF goal: Vital HP on propofol: 65 ml/hr. off propofol: 75 ml/hr off propofol Addendum: 10/20/20 at [address] Amended: Links added.
[2020-10-20] MEDS: FENTANYL PF 1,000 MCG in SODIUM CHLORIDE 0.9% 80 ML IV PRN (16:35)
[2020-10-20] MEDS: LOVASTATIN 20 MG TABLET PO SCH (20:23)
[2020-10-21] MEDS: ENOXAPARIN 120MG/0.8ML SQ SCH ×2 (00:02→11:10)
[2020-10-21] MEDS: MIDAZOLAM HCL 100 MG in SODIUM CHLORIDE 0.9% 80 ML IV PRN (01:32)
[2020-10-21] MEDS: PROPOFOL 100 ML IV PRN ×6 (02:55→21:49)
[2020-10-21 03:35] LABS: BASOPHILS % (AUTO) 0 % (0-1); EOSINOPHILS % (AUTO) 1 % (1-7); LYMPHOCYTES % (AUTO) 7 % (22-44); MEAN CORPUSCULAR HEMOGLOBIN 29.2 pg (27.5-34.5); MEAN CORPUSCULAR HGB CONC 33.4 g/dL (33.2-36.2); MEAN PLATELET VOLUME 7.6 fL (7.4-10.4); MONOCYTES % (AUTO) 4 % (2-9); NEUTROPHILS % (AUTO) 87 % (42-75); PLATELET COUNT 393 x10^3/uL (130-400); RED BLOOD COUNT 4.15 x10^6/uL (4.38-5.82); RED CELL DISTRIBUTION WIDTH 14.2 % (9.4-14.8)
[2020-10-21 03:47] LABS: ANION GAP 2 mmol/L (5-15); CALCIUM 8.4 mg/dL (8.5-10.1); CHLORIDE 108 mmol/L (98-107)
[2020-10-21 03:56] LABS: BILIRUBIN,TOTAL 0.5 mg/dL (0.2-1.0); CREATININE 0.57 mg/dL (0.7-1.3)
[2020-10-21 04:12] LABS: MD SCAN
[2020-10-21] MEDS: FENTANYL PF 2,500 MCG in SODIUM CHLORIDE 0.9% 200 ML IV PRN (05:49)
[2020-10-21] MEDS: TAMSULOSIN 0.4 MG CAP.ER.24H PO SCH (06:57)
[2020-10-21] MEDS: THIAMINE 100MG TABLET PO SCH (07:59)
[2020-10-21] MEDS: PANTOPRAZOLE 40 MG IV IV SCH (07:59)
[2020-10-21] MEDS: FUROSEMIDE 40 MG/4 ML IV SCH (07:59)
[2020-10-21] MEDS: ASCORBIC ACID 500 MG TABLET PO SCH ×2 (07:59→19:52)
[2020-10-21] MEDS: CHOLECALCIFEROL 5,000u TAB PO SCH (07:59)
[2020-10-21] MEDS: DEXAMETHASONE 4 MG/ML, 1ML IVPush SCH (08:00)
[2020-10-21] MEDS: ASPIRIN 81 MG TABLET CHEW PO SCH (08:00)
[2020-10-21] MEDS: ZINC SULFATE 220 MG CAPSULE PO SCH (08:00)
[2020-10-21] MEDS: QUETIAPINE 25MG TABLET PO SCH ×2 (08:00→19:52)
[2020-10-21] MEDS: LOVASTATIN 20 MG TABLET PO SCH (19:52)
[2020-10-22] MEDS: ENOXAPARIN 120MG/0.8ML SQ SCH ×3 (00:44→23:30)
[2020-10-22 03:58] LABS: MEAN CORPUSCULAR HEMOGLOBIN 29.4 pg (27.5-34.5); MEAN CORPUSCULAR HGB CONC 33.8 g/dL (33.2-36.2); MEAN PLATELET VOLUME 7.8 fL (7.4-10.4); PLATELET COUNT 397 x10^3/uL (130-400); RED CELL DISTRIBUTION WIDTH 14.3 % (9.4-14.8)
[2020-10-22 04:10] LABS: CHLORIDE 105 mmol/L (98-107)
[2020-10-22 04:21] LABS: ANION GAP 4 mmol/L (5-15); BILIRUBIN,TOTAL 0.5 mg/dL (0.2-1.0); CALCIUM 8.6 mg/dL (8.5-10.1); CREATININE 0.51 mg/dL (0.7-1.3)
[2020-10-22 04:40] LABS: MD YES
[2020-10-22 04:42] LABS: ANISOCYTOSIS 1+; BAND#(MANUAL) 0.29 x10^3/uL; BANDS%(MANUAL) 2 % (0-7); LYMPH#(MANUAL) 0.87 x10^3/uL (1-3.4); LYMPHS% (MANUAL) 6 % (22-44); MONOS#(MANUAL) 0.87 x10^3/uL (0.3-2.7); MONOS% (MANUAL) 6 % (2-9); MYELOCYTES# (MANUAL) 0.29 x10^3/uL (0-0); MYELOCYTES% (MANUAL) 2 % (0-0); POLYCHROMASIA 1+; REACTIVE LYMPHS # (MANUAL) 0.15 x10^3/uL (0-0); REACTIVE LYMPHS % (MANUAL) 1 % (0-0); SEG#(MANUAL) 12.04 x10^3/uL (1.8-6.8); SEGS% (MANUAL) 83 % (42-75)
[2020-10-22 04:44] LABS: <PLATELET ESTIMATE> ADEQUATE; LARGE PLATELETS 1+; PMNS WITH VACUOLES 1+
[2020-10-22] MEDS ORDERED: PANTOPRAZOLE 40MG TABLET PO SCH (06:00)
[2020-10-22] MEDS: DEXAMETHASONE 4 MG/ML, 1ML IVPush SCH (07:52)
[2020-10-22] MEDS: FUROSEMIDE 40 MG/4 ML IV SCH (07:53)
[2020-10-22] MEDS: ASCORBIC ACID 500 MG TABLET PO SCH ×2 (07:54→19:47)
[2020-10-22] MEDS: THIAMINE 100MG TABLET PO SCH (07:54)
[2020-10-22] MEDS: TAMSULOSIN 0.4 MG CAP.ER.24H PO SCH (07:54)
[2020-10-22] MEDS: CHOLECALCIFEROL 5,000u TAB PO SCH (07:54)
[2020-10-22] MEDS: ASPIRIN 81 MG TABLET CHEW PO SCH (07:54)
[2020-10-22] MEDS: ZINC SULFATE 220 MG CAPSULE PO SCH (07:54)
[2020-10-22] MEDS: QUETIAPINE 25MG TABLET PO SCH ×2 (07:55→19:47)
[2020-10-22] MEDS: PROPOFOL 100 ML IV PRN ×3 (09:00→19:48)
[2020-10-22] MEDS: FENTANYL PF 2,500 MCG in SODIUM CHLORIDE 0.9% 200 ML IV PRN (13:46)
[2020-10-22] MEDS: LOVASTATIN 20 MG TABLET PO SCH (19:47)
[2020-10-23 03:20] LABS: ANION GAP 4 mmol/L (5-15); CALCIUM 8.8 mg/dL (8.5-10.1); CHLORIDE 105 mmol/L (98-107); CREATININE 0.63 mg/dL (0.7-1.3); TRIGLYCERIDES 135 mg/dL (50-200)
[2020-10-23 03:23] LABS: MEAN CORPUSCULAR HEMOGLOBIN 28.9 pg (27.5-34.5); MEAN CORPUSCULAR HGB CONC 33.2 g/dL (33.2-36.2); MEAN PLATELET VOLUME 7.7 fL (7.4-10.4); PLATELET COUNT 423 x10^3/uL (130-400); RED BLOOD COUNT 4.63 x10^6/uL (4.38-5.82); RED CELL DISTRIBUTION WIDTH 14.4 % (9.4-14.8)
[2020-10-23 03:26] LABS: BILIRUBIN,TOTAL 0.8 mg/dL (0.2-1.0)
[2020-10-23 03:46] LABS: MD YES
[2020-10-23 03:48] LABS: BAND#(MANUAL) 0.15 x10^3/uL; BANDS%(MANUAL) 1 % (0-7); LYMPH#(MANUAL) 2.21 x10^3/uL (1-3.4); LYMPHS% (MANUAL) 15 % (22-44); MONOS#(MANUAL) 1.47 x10^3/uL (0.3-2.7); MONOS% (MANUAL) 10 % (2-9); MYELOCYTES# (MANUAL) 0.29 x10^3/uL (0-0); MYELOCYTES% (MANUAL) 2 % (0-0); SEG#(MANUAL) 10.58 x10^3/uL (1.8-6.8); SEGS% (MANUAL) 72 % (42-75)
[2020-10-23 03:50] LABS: ANISOCYTOSIS 1+; POLYCHROMASIA 1+; TOXIC GRAN 1+
[2020-10-23 03:51] LABS: <PLATELET ESTIMATE> INCREASED; <PLT MORPHOLOGY> NORMAL PLT MORPH
[2020-10-23] MEDS: PROPOFOL 100 ML IV PRN ×4 (06:27→22:14)
[2020-10-23] MEDS: FUROSEMIDE 40 MG/4 ML IV SCH (07:12)
[2020-10-23] MEDS: QUETIAPINE 25MG TABLET PO SCH ×2 (07:12→20:35)
[2020-10-23] MEDS: PANTOPRAZOLE 40 MG IV IVPush SCH (07:12)
[2020-10-23] MEDS: TAMSULOSIN 0.4 MG CAP.ER.24H PO SCH (07:13)
[2020-10-23] MEDS: THIAMINE 100MG TABLET PO SCH (07:13)
[2020-10-23] MEDS: ZINC SULFATE 220 MG CAPSULE PO SCH (07:13)
[2020-10-23] MEDS: CHOLECALCIFEROL 5,000u TAB PO SCH (07:13)
[2020-10-23] MEDS: ASCORBIC ACID 500 MG TABLET PO SCH (07:13)
[2020-10-23] MEDS: ASPIRIN 81 MG TABLET CHEW PO SCH (07:13)
[2020-10-23] MEDS: ENOXAPARIN 120MG/0.8ML SQ SCH ×2 (11:49→23:30)
[2020-10-23] MEDS: LOVASTATIN 20 MG TABLET PO SCH (20:35)
[2020-10-23] MEDS: ACETAMINOPHEN 325 MG TABLET PO PRN (22:14)
[2020-10-24] MEDS ORDERED: PROPOFOL 100 ML ONE ×3 (03:35→09:36)
[2020-10-24] MEDS: FENTANYL PF 2,500 MCG in SODIUM CHLORIDE 0.9% 200 ML IV PRN ×2 (03:49→05:14)
[2020-10-24] MEDS: PROPOFOL 100 ML IV PRN ×7 (03:49→22:19)
[2020-10-24 04:01] LABS: BASOPHILS % (AUTO) 1 % (0-1); EOSINOPHILS % (AUTO) 1 % (1-7); LYMPHOCYTES % (AUTO) 8 % (22-44); MEAN CORPUSCULAR HEMOGLOBIN 29.9 pg (27.5-34.5); MEAN CORPUSCULAR HGB CONC 34.1 g/dL (33.2-36.2); MEAN PLATELET VOLUME 7.7 fL (7.4-10.4); MONOCYTES % (AUTO) 8 % (2-9); NEUTROPHILS % (AUTO) 83 % (42-75); PLATELET COUNT 367 x10^3/uL (130-400); RED BLOOD COUNT 4.42 x10^6/uL (4.38-5.82); RED CELL DISTRIBUTION WIDTH 14.1 % (9.4-14.8)
[2020-10-24 04:07] LABS: ANION GAP 5 mmol/L (5-15); CALCIUM 8.5 mg/dL (8.5-10.1); CHLORIDE 105 mmol/L (98-107); CREATININE 0.61 mg/dL (0.7-1.3)
[2020-10-24 04:14] LABS: BILIRUBIN,TOTAL 0.9 mg/dL (0.2-1.0)
[2020-10-24 04:38] LABS: MD SCAN
[2020-10-24] MEDS: CLINDAMYCIN PMX 600MG/50ML 50 ML IV SCH ×3 (07:35→23:54)
[2020-10-24] MEDS: FUROSEMIDE 40 MG/4 ML IV SCH (09:00)
[2020-10-24] MEDS: PANTOPRAZOLE 40 MG IV IVPush SCH (09:00)
[2020-10-24] MEDS: QUETIAPINE 25MG TABLET PO SCH ×2 (09:01→20:40)
[2020-10-24] MEDS: CHOLECALCIFEROL 5,000u TAB PO SCH (09:01)
[2020-10-24] MEDS: LACTOBACILLUS CHEW TABLET PO SCH ×3 (09:01→20:40)
[2020-10-24] MEDS: ASPIRIN 81 MG TABLET CHEW PO SCH (09:01)
[2020-10-24] MEDS: THIAMINE 100MG TABLET PO SCH (09:02)
[2020-10-24] MEDS: TAMSULOSIN 0.4 MG CAP.ER.24H PO SCH (09:02)
[2020-10-24] MEDS: ENOXAPARIN 120MG/0.8ML SQ SCH ×2 (11:30→23:30)
[2020-10-24] MEDS: LOVASTATIN 20 MG TABLET PO SCH (20:40)
[2020-10-25] MEDS: PROPOFOL 100 ML IV PRN ×6 (01:21→22:49)
[2020-10-25] MEDS: FENTANYL PF 2,500 MCG in SODIUM CHLORIDE 0.9% 200 ML IV PRN (04:04)
[2020-10-25 04:27] LABS: BASOPHILS % (AUTO) 1 % (0-1); EOSINOPHILS % (AUTO) 2 % (1-7); LYMPHOCYTES % (AUTO) 9 % (22-44); MEAN CORPUSCULAR HEMOGLOBIN 29.3 pg (27.5-34.5); MEAN CORPUSCULAR HGB CONC 33.5 g/dL (33.2-36.2); MEAN PLATELET VOLUME 7.8 fL (7.4-10.4); MONOCYTES % (AUTO) 8 % (2-9); NEUTROPHILS % (AUTO) 80 % (42-75); PLATELET COUNT 300 x10^3/uL (130-400); RED BLOOD COUNT 4.16 x10^6/uL (4.38-5.82); RED CELL DISTRIBUTION WIDTH 14.7 % (9.4-14.8)
[2020-10-25 04:28] LABS: MD SCAN
[2020-10-25 04:41] LABS: ANION GAP 3 mmol/L (5-15); CALCIUM 8.4 mg/dL (8.5-10.1); CHLORIDE 103 mmol/L (98-107); CREATININE 0.59 mg/dL (0.7-1.3)
[2020-10-25 04:48] LABS: BILIRUBIN,TOTAL 0.8 mg/dL (0.2-1.0); C-REACTIVE PROTEIN, QUANT > 19.00 mg/dL (0.02-0.49)
[2020-10-25] MEDS: CLINDAMYCIN PMX 600MG/50ML 50 ML IV SCH ×3 (07:29→23:06)
[2020-10-25] MEDS: TAMSULOSIN 0.4 MG CAP.ER.24H PO SCH (08:55)
[2020-10-25] MEDS ORDERED: AcetaZOLAMIDE INJ 500 MG IVPush SCH (09:00)
[2020-10-25] MEDS: PANTOPRAZOLE 40 MG IV IVPush SCH (09:02)
[2020-10-25] MEDS: LACTOBACILLUS CHEW TABLET PO SCH ×3 (09:02→21:12)
[2020-10-25] MEDS: ASPIRIN 81 MG TABLET CHEW PO SCH (09:02)
[2020-10-25] MEDS: QUETIAPINE 25MG TABLET PO SCH ×2 (09:02→21:12)
[2020-10-25] MEDS: ENOXAPARIN 120MG/0.8ML SQ SCH ×2 (11:11→23:06)
[2020-10-25] MEDS: LOVASTATIN 20 MG TABLET PO SCH (21:12)
[2020-10-26] MEDS: PROPOFOL 100 ML IV PRN ×7 (01:30→22:54)
[2020-10-26 04:20] LABS: BASOPHILS % (AUTO) 1 % (0-1); EOSINOPHILS % (AUTO) 2 % (1-7); LYMPHOCYTES % (AUTO) 9 % (22-44); MEAN CORPUSCULAR HEMOGLOBIN 29.5 pg (27.5-34.5); MEAN CORPUSCULAR HGB CONC 33.5 g/dL (33.2-36.2); MEAN PLATELET VOLUME 8.1 fL (7.4-10.4); MONOCYTES % (AUTO) 8 % (2-9); NEUTROPHILS % (AUTO) 79 % (42-75); PLATELET COUNT 295 x10^3/uL (130-400); RED BLOOD COUNT 4.08 x10^6/uL (4.38-5.82); RED CELL DISTRIBUTION WIDTH 14.7 % (9.4-14.8)
[2020-10-26 04:29] LABS: MD NO
[2020-10-26 04:32] LABS: ANION GAP 3 mmol/L (5-15); CALCIUM 8.6 mg/dL (8.5-10.1); CHLORIDE 108 mmol/L (98-107)
[2020-10-26 04:42] LABS: BILIRUBIN,TOTAL 0.5 mg/dL (0.2-1.0); CREATININE 0.64 mg/dL (0.7-1.3); TRIGLYCERIDES 119 mg/dL (50-200)
[2020-10-26] MEDS: FUROSEMIDE 40 MG/4 ML IV SCH ×2 (07:49→16:50)
[2020-10-26] MEDS: LACTOBACILLUS CHEW TABLET PO SCH ×3 (07:49→20:59)
[2020-10-26] MEDS: POTASSIUM CHLORIDE 10% 40 MEQ/30 ML UDC PO SCH ×2 (07:49→20:59)
[2020-10-26] MEDS: PANTOPRAZOLE 40 MG IV IVPush SCH (07:49)
[2020-10-26] MEDS: ASPIRIN 81 MG TABLET CHEW PO SCH (07:49)
[2020-10-26] MEDS: CLINDAMYCIN PMX 600MG/50ML 50 ML IV SCH ×3 (07:49→22:54)
[2020-10-26] MEDS: TAMSULOSIN 0.4 MG CAP.ER.24H PO SCH (07:50)
[2020-10-26] MEDS: QUETIAPINE 25MG TABLET PO SCH ×3 (07:50→23:01)
[2020-10-26] MEDS: ACETAMINOPHEN 325 MG TABLET PO PRN ×2 (10:21→17:05)
[2020-10-26] MEDS: FENTANYL PF 100 MCG/2ML IVPush PRN ×6 (10:23→22:20)
[2020-10-26] MEDS: RIVAROXABAN 15 MG TABLET PO SCH ×2 (10:52→16:50)
[2020-10-26] MEDS: DOCUSATE 50 MG/5 ML, 10ML UDC PO PRN (10:52)
[2020-10-26] MEDS ORDERED: POLYETHYLENE GLYCOL 17 GM PACKET PO PRN (11:00)
[2020-10-26] MEDS ORDERED: RIVAROXABAN 15 MG TABLET PO SCH (11:00)
[2020-10-26] MEDS ORDERED: BISACODYL 10 MG SUPP PR PRN (11:00)
[2020-10-26] MEDS: LOVASTATIN 20 MG TABLET PO SCH (21:00)
[2020-10-27] MEDS: ACETAMINOPHEN 325 MG TABLET PO PRN ×2 (01:14→13:06)
[2020-10-27] MEDS: FENTANYL PF 100 MCG/2ML IVPush PRN ×4 (01:18→13:24)
[2020-10-27] MEDS: PROPOFOL 100 ML IV PRN ×9 (01:53→22:43)
[2020-10-27 05:26] LABS: EOSINOPHILS % (AUTO) 2 % (1-7); MEAN PLATELET VOLUME 9.1 fL (7.4-10.4)
[2020-10-27 05:29] LABS: BASOPHILS % (AUTO) 1 % (0-1); LYMPHOCYTES % (AUTO) 8 % (22-44); MEAN CORPUSCULAR HEMOGLOBIN 29.4 pg (27.5-34.5); MEAN CORPUSCULAR HGB CONC 33.8 g/dL (33.2-36.2); MONOCYTES % (AUTO) 8 % (2-9); NEUTROPHILS % (AUTO) 81 % (42-75); PLATELET COUNT 307 x10^3/uL (130-400); RED BLOOD COUNT 4.36 x10^6/uL (4.38-5.82); RED CELL DISTRIBUTION WIDTH 14.5 % (9.4-14.8)
[2020-10-27 05:35] LABS: CHLORIDE 107 mmol/L (98-107)
[2020-10-27 05:47] LABS: ANION GAP 5 mmol/L (5-15); BILIRUBIN,TOTAL 0.7 mg/dL (0.2-1.0); CALCIUM 8.5 mg/dL (8.5-10.1); CREATININE 0.61 mg/dL (0.7-1.3)
[2020-10-27] MEDS: CLINDAMYCIN PMX 600MG/50ML 50 ML IV SCH (06:05)
[2020-10-27 06:12] LABS: MD SCAN
[2020-10-27] MEDS: FUROSEMIDE 40 MG/4 ML IV SCH ×2 (06:30→16:03)
[2020-10-27] MEDS ORDERED: PHARMACOKINETIC MONITORING MC PRN (07:00)
[2020-10-27] MEDS ORDERED: VANCOMYCIN PER PHARMACY MC PRN (07:00)
[2020-10-27] MEDS ORDERED: PHARMACOKINETIC CONSULTATION MC ONE (07:00)
[2020-10-27] MEDS ORDERED: VANCOMYCIN 2,500 MG in SODIUM CHLORIDE 0.9% 500 ML IV ONE (07:00)
[2020-10-27] MEDS: LACTOBACILLUS CHEW TABLET PO SCH ×3 (07:58→20:08)
[2020-10-27] MEDS: PANTOPRAZOLE GRAN. PKT 40 MG NG SCH (07:58)
[2020-10-27] MEDS: QUETIAPINE 25MG TABLET PO SCH ×3 (07:58→23:35)
[2020-10-27] MEDS: ASPIRIN 81 MG TABLET CHEW PO SCH (07:58)
[2020-10-27] MEDS: MEROPENEM 500 MG in SODIUM CHLORIDE 0.9% 100 ML IV SCH ×3 (07:58→22:31)
[2020-10-27] MEDS: RIVAROXABAN 15 MG TABLET PO SCH ×2 (07:59→16:02)
[2020-10-27] MEDS ORDERED: FENTANYL 50 MCG PATCH TD SCH (08:30)
[2020-10-27] MEDS ORDERED: FILTER 0.22 MICRON IV PRN (09:30)
[2020-10-27] MEDS ORDERED: AMIODARONE 150 MG in DEXTROSE 5% 100 ML IV ONE (09:30)
[2020-10-27] MEDS: AMIODARONE 450 MG in DEXTROSE 5% 241 ML IV PRN (09:41)
[2020-10-27 10:33] LABS: MICROSCOPIC AUTO
[2020-10-27] MEDS ORDERED: VECURONIUM 10 MG ONE (13:21)
[2020-10-27] MEDS ORDERED: FENTANYL PF 100 MCG/2ML IVPush ONE (13:30)
[2020-10-27] MEDS ORDERED: VECURONIUM 10 MG IVPush ONE (13:30)
[2020-10-27] MEDS ORDERED: ICN FENTANYL 4MCG/ML IV IVPush ONE (13:30)
[2020-10-27] MEDS: FENTANYL PF 1,000 MCG in SODIUM CHLORIDE 0.9% 80 ML IV PRN ×2 (13:48→19:51)
[2020-10-27] MEDS: MIDAZOLAM HCL 100 MG in SODIUM CHLORIDE 0.9% 80 ML IV PRN (15:00)
[2020-10-27] MEDS: VANCOMYCIN 2,000 MG in SODIUM CHLORIDE 0.9% 500 ML IV SCH (20:07)
[2020-10-27] MEDS: LOVASTATIN 20 MG TABLET PO SCH (20:08)
[2020-10-28] MEDS: PROPOFOL 100 ML IV PRN ×9 (01:39→21:59)
[2020-10-28] MEDS: AMIODARONE 450 MG in DEXTROSE 5% 241 ML IV PRN (01:57)
[2020-10-28] MEDS: ACETAMINOPHEN 325 MG TABLET PO PRN (03:29)
[2020-10-28] MEDS: FENTANYL PF 1,000 MCG in SODIUM CHLORIDE 0.9% 80 ML IV PRN ×3 (03:50→21:41)
[2020-10-28 04:44] LABS: BASOPHILS % (AUTO) 1 % (0-1); EOSINOPHILS % (AUTO) 3 % (1-7); LYMPHOCYTES % (AUTO) 6 % (22-44); MEAN CORPUSCULAR HEMOGLOBIN 29.5 pg (27.5-34.5); MEAN CORPUSCULAR HGB CONC 33.8 g/dL (33.2-36.2); MEAN PLATELET VOLUME 8.5 fL (7.4-10.4); MONOCYTES % (AUTO) 7 % (2-9); NEUTROPHILS % (AUTO) 84 % (42-75); PLATELET COUNT 256 x10^3/uL (130-400); RED BLOOD COUNT 4.19 x10^6/uL (4.38-5.82); RED CELL DISTRIBUTION WIDTH 14.3 % (9.4-14.8)
[2020-10-28 04:45] LABS: ANION GAP 3 mmol/L (5-15); CALCIUM 8.4 mg/dL (8.5-10.1); CHLORIDE 107 mmol/L (98-107)
[2020-10-28 04:52] LABS: BILIRUBIN,TOTAL 0.7 mg/dL (0.2-1.0); CREATININE 0.55 mg/dL (0.7-1.3)
[2020-10-28 05:15] LABS: C-REACTIVE PROTEIN, QUANT > 19.00 mg/dL (0.02-0.49)
[2020-10-28 05:49] LABS: MD SCAN
[2020-10-28] MEDS ORDERED: POTASSIUM CHLORIDE 10% 20 MEQ/15 ML UDC PO ONE (06:00)
[2020-10-28] MEDS: MIDAZOLAM HCL 100 MG in SODIUM CHLORIDE 0.9% 80 ML IV PRN ×2 (06:23→15:18)
[2020-10-28] MEDS: VANCOMYCIN 2,000 MG in SODIUM CHLORIDE 0.9% 500 ML IV SCH ×2 (08:15→19:35)
[2020-10-28] MEDS: MEROPENEM 500 MG in SODIUM CHLORIDE 0.9% 100 ML IV SCH ×3 (08:15→22:31)
[2020-10-28] MEDS: FUROSEMIDE 40 MG/4 ML IV SCH ×2 (08:15→17:32)
[2020-10-28] MEDS: ASPIRIN 81 MG TABLET CHEW PO SCH (08:16)
[2020-10-28] MEDS: RIVAROXABAN 15 MG TABLET PO SCH ×2 (08:16→17:32)
[2020-10-28] MEDS: PANTOPRAZOLE GRAN. PKT 40 MG NG SCH (08:16)
[2020-10-28] MEDS: QUETIAPINE 25MG TABLET PO SCH ×3 (08:16→22:36)
[2020-10-28] MEDS: AMIODARONE 200 MG TABLET PO SCH ×2 (08:16→20:07)
[2020-10-28] MEDS: LACTOBACILLUS CHEW TABLET PO SCH ×3 (08:17→20:07)
[2020-10-28] MEDS: LOVASTATIN 20 MG TABLET PO SCH (20:07)
[2020-10-29] MEDS: PROPOFOL 100 ML IV PRN ×6 (00:42→14:38)
[2020-10-29 04:42] LABS: BASOPHILS % (AUTO) 0 % (0-1); EOSINOPHILS % (AUTO) 3 % (1-7); LYMPHOCYTES % (AUTO) 9 % (22-44); MEAN CORPUSCULAR HEMOGLOBIN 29.1 pg (27.5-34.5); MEAN CORPUSCULAR HGB CONC 32.7 g/dL (33.2-36.2); MEAN PLATELET VOLUME 8.4 fL (7.4-10.4); MONOCYTES % (AUTO) 7 % (2-9); NEUTROPHILS % (AUTO) 81 % (42-75); PLATELET COUNT 209 x10^3/uL (130-400); RED BLOOD COUNT 3.88 x10^6/uL (4.38-5.82); RED CELL DISTRIBUTION WIDTH 14.7 % (9.4-14.8)
[2020-10-29 04:45] LABS: MD NO
[2020-10-29 04:55] LABS: CHLORIDE 106 mmol/L (98-107)
[2020-10-29 05:02] LABS: ANION GAP 2 mmol/L (5-15); BILIRUBIN,TOTAL 0.5 mg/dL (0.2-1.0); CALCIUM 8.3 mg/dL (8.5-10.1); CREATININE 0.64 mg/dL (0.7-1.3); TRIGLYCERIDES 141 mg/dL (50-200)
[2020-10-29] MEDS: MIDAZOLAM HCL 100 MG in SODIUM CHLORIDE 0.9% 80 ML IV PRN (05:33)
[2020-10-29] MEDS: FENTANYL PF 1,000 MCG in SODIUM CHLORIDE 0.9% 80 ML IV PRN ×2 (05:33→12:51)
[2020-10-29] MEDS: MEROPENEM 500 MG in SODIUM CHLORIDE 0.9% 100 ML IV SCH ×2 (06:32→14:54)
[2020-10-29] MEDS: RIVAROXABAN 15 MG TABLET PO SCH (07:47)
[2020-10-29] MEDS: ASPIRIN 81 MG TABLET CHEW PO SCH (07:47)
[2020-10-29] MEDS: AMIODARONE 200 MG TABLET PO SCH (07:47)
[2020-10-29] MEDS: PANTOPRAZOLE GRAN. PKT 40 MG NG SCH (07:48)
[2020-10-29] MEDS: FUROSEMIDE 40 MG/4 ML IV SCH ×2 (07:48→16:00)
[2020-10-29] MEDS: QUETIAPINE 25MG TABLET PO SCH ×2 (07:48→16:00)
[2020-10-29] MEDS: LACTOBACILLUS CHEW TABLET PO SCH ×2 (07:48→16:00)
[2020-10-29] MEDS: VANCOMYCIN 2,000 MG in SODIUM CHLORIDE 0.9% 500 ML IV SCH (09:34)
[2020-10-29] MEDS ORDERED: LORazepam 2 MG/ML, 1ML IVPush PRN (17:00)
[2020-10-29] MEDS ORDERED: MORPHINE SULFATE 4 MG/ML, 1ML IVPush PRN (17:00)
[2020-10-29] MEDS ORDERED: ONDANSETRON 2MG/ML, 2ML IVPush PRN (17:00)
[2020-10-29] MEDS ORDERED: MORPHINE SULFATE 4 MG/ML, 1ML IV ONE (17:00)
[2020-10-29] MEDS ORDERED: ATROPINE OPHTH SOLN 1%, 5ML PO PRN (17:00)
[2020-10-29] MEDS ORDERED: LORazepam 2 MG/ML, 1ML IV ONE (17:00)
[2020-11-16] MEDS ORDERED: RIVAROXABAN 20 MG TABLET PO SCH (06:00)
== END 2020-10-29 21:58 | disposition expired | DRG 870 ==
LOC: ED 14:59 → EDIP 16:17 → 4EST 21:57 → CCU 22:42
PROVIDERS: ADMIT Hospitalist; ATTEND Hospitalist
PROC: 02HV33Z Insertion of Infusion Device into Superior Vena Cava, Percutaneous Approach (ICD-10-PCS; 2020-10-14)
PROC: 5A1955Z Respiratory Ventilation, Greater than 96 Consecutive Hours (ICD-10-PCS; principal; 2020-10-16)
PROC: 0BH17EZ Insertion of Endotracheal Airway into Trachea, Via Natural or Artificial Opening (ICD-10-PCS; 2020-10-16)
PROC: XW033E5 Introduction of Remdesivir Anti-infective into Peripheral Vein, Percutaneous Approach, New Technology Group 5 (ICD-10-PCS; 2020-10-16)
PROC: 0T9B70Z Drainage of Bladder with Drainage Device, Via Natural or Artificial Opening (ICD-10-PCS; 2020-10-20)
DX: A41.89 Other specified sepsis (principal); J12.89 Other viral pneumonia; J81.0 Acute pulmonary edema; J96.01 Acute respiratory failure with hypoxia; R65.21 Severe sepsis with septic shock; U07.1 COVID-19; D68.9 Coagulation defect, unspecified; E87.1 Hypo-osmolality and hyponatremia; J81.1 Chronic pulmonary edema; Z99.11 Dependence on respirator [ventilator] status; D63.8 Anemia in other chronic diseases classified elsewhere; E78.5 Hyperlipidemia, unspecified; E86.0 Dehydration; E87.6 Hypokalemia; E87.8 Other disorders of electrolyte and fluid balance, not elsewhere classified; E88.09 Other disorders of plasma-protein metabolism, not elsewhere classified; I10 Essential (primary) hypertension; I27.29 Other secondary pulmonary hypertension; I27.81 Cor pulmonale (chronic); I48.91 Unspecified atrial fibrillation; I51.3 Intracardiac thrombosis, not elsewhere classified; N40.0 Benign prostatic hyperplasia without lower urinary tract symptoms; Z51.5 Encounter for palliative care; Z79.01 Long term (current) use of anticoagulants
CPT/HCPCS: 36415; 36600; 71045; 80048; 80053; 80202; 81001; 82247; 82248; 82728; 82803; 83605; 83615; 83735; 84145; 84443; 84478; 84484; 85025; 85049; 85379; 85384; 85610; 85730; 86140; 87040; 87070; 87077; 87081; 87086; 87205; 93005; 93306; 93308; 93970; 94002; 94003; 94660; 96372; 96374; 99285; G0378; J0456; J0696; J1100; J1650; J1940; J2185; J2250; J2704; J3010; J3370; J3480; J7030; J7060; C9113; J0282; J0330; J7040; J7050